=== PATIENT | female | born 1990 | race African-American/Black ===

== ENCOUNTER 2019-06-21 18:21 | Emergency (ER) | payer MEDICAID ==
--- NOTE | 2019-06-21 18:43 | Emergency Department Record ---
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 She states presently she has no symptoms but has the SOB during the middle of the night for the last 23 years. It seems to be getting slightly worse over the last year or 2 per the patient. She denies any chest pain, fever, back pain or CHAVARRIA during the episodes. Presently she has no complaints of any problems. The patient's caregiver from the home is now with her and states the patient does have an albuterol inhaller available to her but she refuses to use it. The caregiver states the patient had no complaints this evening and then when they were making their last rounds she stated she called an ambulance. MD Complaint: Shortness of breath Onset/Timin -: Year(s) Improves With: Nothing Worsens With: Nothing Associated Symptoms: Denies other symptoms Treatments Prior to Arrival: None - Related Data Home Medications Medication Instructions Recorded Confirmed Last Taken Albuterol Sulfate [Albuterol 8.5 gm IH ASDIR 06/21/19 06/21/19 Unknown Sulfate Hfa] Cariprazine HCl [Vraylar] 5 cap PO QHS 06/21/19 06/21/19 Unknown Diclofenac Sodium [Voltaren] 100 gm TP QID 06/21/19 06/21/19 Unknown Diphenhydramine HCl [Benadryl] 50 mg PO QHS 06/21/19 06/21/19 Unknown Hydroxyzine Pamoate [Vistaril] 50 mg PO TID 06/21/19 06/21/19 Unknown Ibuprofen 600 mg PO ASDIR 06/21/19 06/21/19 Unknown Lisinopril 10 mg PO DAILY 06/21/19 06/21/19 Unknown Loratadine 10 mg PO DAILY 06/21/19 06/21/19 Unknown Lorazepam 0.5 mg PO BID 06/21/19 06/21/19 Unknown Metformin HCl 500 mg PO DAILY 06/21/19 06/21/19 Unknown Pantoprazole Sodium [Protonix] 40 mg PO DAILY 06/21/19 06/21/19 Unknown Trazodone HCl 50 mg PO QHS 06/21/19 06/21/19 Unknown Previous Rx's Medication Instructions Recorded Albuterol Sulfate [Proair Hfa] 2 puff IH QID PRN #1 inhaler 06/21/19 Travel Screening - Travel/Exposure Within Last 30 Days Have you traveled within the last 30 days?: No Review of Systems Constitutional: Denies: Chills, Fever Eyes: Denies: Eye discharge ENT: Denies: Congestion Respiratory: Denies: Cough, Dyspnea Cardiovascular: Denies: Arrhythmia, Chest pain Endocrine: Denies: Fatigue Gastrointestinal: Denies: Diarrhea, Vomiting Genitourinary: Denies: Dysuria Musculoskeletal: Denies: Arthralgia Past Medical History - SOCIAL HISTORY Smoking Status: Current some day smoker Alcohol Use: None Drug Use: None - RESPIRATORY Hx Respiratory Disorders: No - CARDIOVASCULAR Hx Cardio Disorders: Yes Hx Hypertension: Yes - NEURO Hx Neuro Disorders: No - GI Hx GI Disorders: No - Hx Genitourinary Disorders: No - ENDOCRINE Hx Endocrine Disorders: No - MUSCULOSKELETAL Hx Musculoskeletal Disorders: No - PSYCH Hx Psych Problems: Yes Comment:: unsure - HEMATOLOGY/ONCOLOGY Hx Hematology/Oncology Disorders: No Family Medical History Any Significant Family History?: No Family Hx Comment (NOT TO BE USED IN PLACE OF ITEMS BELOW): unknown Physical Exam - General General Appearance: Alert, Oriented x3, Cooperative, No acute distress (The patient is speaking in full sentences without any difficulty or SOB.) - Head Head exam: Atraumatic, Normocephalic - Eye Eye exam: Normal appearance, PERRL - ENT Throat exam: Normal inspection. negative: Tonsillar erythema, Tonsillar exudate - Neck Neck exam: Normal inspection, Full ROM. negative: Tenderness - Respiratory Respiratory exam: Normal lung sounds bilaterally. negative: Decreased breath sounds, Respiratory distress, Rhonchi, Stridor, Wheezes - Cardiovascular Cardiovascular Exam: Regular rate, Normal rhythm, Normal heart sounds - GI/Abdominal GI/Abdominal exam: Soft, Normal bowel sounds. negative: Guarding, Pulsatile mass, Rebound, Tenderness - Extremities Extremities exam: Normal inspection, Full ROM, Normal capillary refill. negative: Calf tenderness, Pedal edema, Tenderness - Back Back exam: Denies: Normal inspection - Neurological Neurological exam: Alert, Normal gait, Oriented X3. negative: Abnormal gait, Altered, Motor sensory deficit - Psychiatric Psychiatric exam: Normal mood. negative: Agitated, Anxious, Depressed, Flat affect, Homicidal ideation, Suicidal ideation Course Vital Signs 06/21/19 18:25 Temperature 99.2 F Pulse Rate 89 Respiratory 20 Rate Blood Pressure 130/80 Pulse Ox 100 - Reevaluation(s) Reevaluation #1: It seems the patient has a long hx of difficult IV starts and blood draws. We did attempt to draw blood multiple times but were not successful. I did offer to do a groin stick for blood but the patient refused. She then stated she would just like to go home and would like to refuse the blood work and xray. I then did discuss the risks of refusing which included uncontrolled diabetes, kidney failure, lung mass, stroke, disability and and the patient fully understood the risks and accepted the risks. She was directed to see her PCP TALAT and to return to the ER for any worsening issues or problems. 06/21/19 19:15 Medical Decision Making - Lab Data Result diagrams: 06/21/19 18:42 06/21/19 18:42 Disposition Disposition: Discharge Clinical Impression: Dyspnea Qualifiers: Dyspnea type: unspecified Qualified Code(s): R06.00 - Dyspnea, unspecified Disposition: Against Medical Advice Condition: (2) Stable Instructions: Dyspnea (ED) Additional Instructions: Please continue your regular medicines and please use your inhaller before going to bed at night. Please see your family doctor later this week for recheck and return to the ER for any worsening or new issues or problems. Prescriptions: Albuterol Sulfate [Proair Hfa] 2 puff IH QID PRN #1 inhaler PRN Reason: Cough And Difficulty Breathing Forms: Patient Portal Access Time of Disposition: 19:13 Quality - Quality Measures Quality Measures: N/A - Blood Pressure Screening View Details: Yes Does Patient Have Any of the Following: No Blood Pressure Classification: Pre-Hypertensive BP Reading Systolic Measurement: 130 Diastolic Measurement: 80 Screening for High Blood Pressure: < Pre-Hypertensive BP, F/U Documented > [[id number]] Pre-Hypertensive Follow-up Interventions: Referral to alternative/primary care provider.
== END 2019-06-21 19:23 | disposition left against medical advice (07) ==
LOC: ER 18:21
DX: R06.00 Dyspnea, unspecified (principal); I10 Essential (primary) hypertension; F17.210 Nicotine dependence, cigarettes, uncomplicated
CPT/HCPCS: 99283